=== PATIENT | female | born 1950 | race Caucasian/White ===

== ENCOUNTER → 2018-12-03 | Outpatient (CLI) | payer OTHER ==
[~2018-12-03] MED LIST: ACTIVE-Q200 MG PO; CALCIUM PO; LOSA25 PO; METO25ER PO; OMEGA 3 PO; RED YEAST RICE600 MG PO; UBIQUINOL PO; VIT D3 PO; XARELTO20 MG PO; [UNRECOGNIZED DRUG - OTHER] PO
[2018-12-05 15:06] LABS: HPV 16 Positive (Negative); HPV 18 Negative (Negative); HPV OTHER HR TYPES Negative (Negative)
== END | disposition home or self-care (01) ==
LOC: LAB SHORT 19:15 → LAB 19:15
PROVIDERS: Nurse Practitioner Women's Health
DX: Z12.4 Encounter for screening for malignant neoplasm of cervix (principal); Z91.89 Other specified personal risk factors, not elsewhere classified
CPT/HCPCS: 87624; 87625; G0123

== ENCOUNTER → 2019-01-08 | Outpatient (CLI) | payer OTHER | END | disposition home or self-care (01) | LOC: LAB SHORT 12:19 → PLD 12:19 | DX: N84.1 Polyp of cervix uteri (principal); N87.9 Dysplasia of cervix uteri, unspecified | CPT/HCPCS: 88305 ==

== ENCOUNTER → 2021-09-25 | Outpatient (CLI) | payer OTHER ==
[2021-09-25 09:58] LABS: BASOPHILS ABSOLUTE AUTO 0.04 K/mm3 (0.00-0.23); BASOPHILS PERCENT AUTO 1 % (0-2); EOSINOPHILS ABSOLUTE AUTO 0.09 K/mm3 (0.00-0.68); EOSINOPHILS PERCENT AUTO 1 % (0-6); Hematocrit 40.8 % (33.0-51.0); Hemoglobin 13.8 g/dL (11.5-16.0); IMMATURE GRAN ABSOLUTE AUTO 0.01 K/mm3 (0.00-0.10); IMMATURE GRAN PERCENT AUTO 0 % (0-1); LYMPHOCYTES ABSOLUTE AUTO 0.72 K/mm3 (0.84-5.20); LYMPHOCYTES PERCENT AUTO 12 % (21-46); MONOCYTES ABSOLUTE AUTO 0.47 K/mm3 (0.16-1.47); MONOCYTES PERCENT AUTO 8 % (4-13); Mean Corpuscular HGB 30.2 pg (26.0-34.0); Mean Corpuscular HGB Conc 33.8 g/dL (31.5-36.5); Mean Corpuscular Volume 89 fL (80-100); NEUTROPHILS ABSOLUTE AUTO 4.93 K/mm3 (1.96-9.15); NEUTROPHILS PERCENT AUTO 79 % (41-73); Platelet Count 180 K/mm3 (150-400); RDW Coefficient Variation 13.2 % (11.7-14.2); RDW Standard Deviation 43.3 fL (35.1-46.3); Red Blood Cell Count 4.57 M/mm3 (3.80-5.20); White Blood Cell Count 6.26 K/mm3 (4.00-11.30)
[2021-09-25 10:16] LABS: Alanine Aminotransfer (ALT/SGP 26 U/L (12-78); Albumin, Blood 3.8 g/dL (3.4-5.0); Albumin/Globulin Ratio 1.3 (0.8-1.8); Alk Phos 64 U/L (40-126); Anion Gap 6 mmol/L (6-16); Aspartate Aminotrans (AST/SGOT 18 U/L (12-37); Bilirubin, Total 0.7 mg/dL (0.1-1.0); Blood Urea Nitrogen 16 mg/dL (8-24); Bun/Creatinine Ratio 18.2 (12.0-20.0); CO2, Blood 27 mmol/L (21-32); Calcium, Blood 9.4 mg/dL (8.5-10.1); Chloride, Blood 105 mmol/L (98-108); Creatinine, Blood 0.88 mg/dL (0.40-1.00); Globulin, Blood 2.9 g/dL (2.2-4.0); Glomerular Filtration Rate >60 (60-); Glucose, Blood 101 mg/dL (70-99); Potassium, Blood 4.3 mmol/L (3.5-5.5); Sodium, Blood 138 mmol/L (136-145); Thyroid Stimulating Hormone 1.198 uIU/mL (0.360-4.800); Total Protein, Blood 6.7 g/dL (6.4-8.2)
== END | disposition home or self-care (01) ==
LOC: LAB SHORT 09:52 → LAB 09:52
PROVIDERS: Physician Assistant Medical
DX: I48.91 Unspecified atrial fibrillation (principal)
CPT/HCPCS: 80053; 83880; 84443; 85025

== ENCOUNTER 2021-10-21 23:32 | Emergency (ER) | payer OTHER ==
[~2021-10-21] VITALS: Ht 167.6 cm; Wt 90.7 kg
[~2021-10-21 23:32] MED LIST changes: +AFRIN15 M6; +IBUP800 PO; +ZYRTEC10 M2 PO
== END 2021-10-22 04:05 | disposition home or self-care (01) ==
LOC: ER 23:32
DX: G47.00 Insomnia, unspecified (principal); R00.0 Tachycardia, unspecified; I48.91 Unspecified atrial fibrillation; Z88.0 Allergy status to penicillin; Z91.040 Latex allergy status; Z79.899 Other long term (current) drug therapy
CPT/HCPCS: 93005; 93010; 99283-25

== ENCOUNTER 2021-10-31 01:30 | Emergency (ER) | payer OTHER ==
[~2021-10-31] VITALS: Ht 172.7 cm; Wt 79.4 kg
[2021-10-31] MEDS ORDERED: CELE100 PO (02:50)
[2021-10-31] MEDS ORDERED: FUROSEMIDE20 MG PO (02:50)
[2021-10-31 03:20] LABS: BASOPHILS ABSOLUTE AUTO 0.04 K/mm3 (0.00-0.23); BASOPHILS PERCENT AUTO 1 % (0-2); EOSINOPHILS PERCENT AUTO 2 % (0-6); Hematocrit 39.1 % (33.0-51.0); Hemoglobin 13.2 g/dL (11.5-16.0); IMMATURE GRAN ABSOLUTE AUTO 0.01 K/mm3 (0.00-0.10); IMMATURE GRAN PERCENT AUTO 0 % (0-1); LYMPHOCYTES ABSOLUTE AUTO 0.57 K/mm3 (0.84-5.20); LYMPHOCYTES PERCENT AUTO 14 % (21-46); MONOCYTES ABSOLUTE AUTO 0.57 K/mm3 (0.16-1.47); MONOCYTES PERCENT AUTO 14 % (4-13); Mean Corpuscular HGB 30.5 pg (26.0-34.0); Mean Corpuscular HGB Conc 33.8 g/dL (31.5-36.5); Mean Corpuscular Volume 90 fL (80-100); Mean Platelet Volume 11.9 fL (9.1-12.4); NEUTROPHILS ABSOLUTE AUTO 2.85 K/mm3 (1.96-9.15); NEUTROPHILS PERCENT AUTO 69 % (41-73); Platelet Count 184 K/mm3 (150-400); RDW Coefficient Variation 13.6 % (11.7-14.2); Red Blood Cell Count 4.33 M/mm3 (3.80-5.20); White Blood Cell Count 4.14 K/mm3 (4.00-11.30)
[2021-10-31 03:41] LABS: Alanine Aminotransfer (ALT/SGP 26 U/L (12-78); Albumin, Blood 3.5 g/dL (3.4-5.0); Albumin/Globulin Ratio 1.2 (0.8-1.8); Alk Phos 66 U/L (50-136); Anion Gap 6 mmol/L (6-16); Aspartate Aminotrans (AST/SGOT 15 U/L (12-37); Bilirubin, Total 0.8 mg/dL (0.1-1.0); Blood Urea Nitrogen 16 mg/dL (8-24); Bun/Creatinine Ratio 21.6 (12.0-20.0); CO2, Blood 27 mmol/L (21-32); Chloride, Blood 111 mmol/L (98-108); Creatinine, Blood 0.74 mg/dL (0.40-1.00); Globulin, Blood 2.8 g/dL (2.2-4.0); Glomerular Filtration Rate >60 (60-); Glucose, Blood 97 mg/dL (70-99); Magnesium, Blood 2.2 mg/dL (1.6-2.4); Potassium, Blood 3.8 mmol/L (3.5-5.5); Sodium, Blood 144 mmol/L (136-145); Total Protein, Blood 6.3 g/dL (6.4-8.2)
== END 2021-10-31 07:07 | disposition home or self-care (01) ==
LOC: ER 01:30
PROVIDERS: Student in an Organized Health Care Education/Training Program
DX: I48.91 Unspecified atrial fibrillation (principal); J30.2 Other seasonal allergic rhinitis; Z88.0 Allergy status to penicillin; Z91.040 Latex allergy status; Z79.899 Other long term (current) drug therapy
CPT/HCPCS: 71045; 80053; 83735; 83880; 84484; 85025; 93005; 93010; A9270

== ENCOUNTER 2021-11-01 17:37 | Emergency (ER) | payer OTHER ==
[~2021-11-01] VITALS: Ht 172.7 cm; Wt 83.9 kg
[~2021-11-01 17:37] MED LIST changes: +CELE100 PO; +FUROSEMIDE20 MG PO
[2021-11-02] MEDS ORDERED: LOSARTAN POTASS25 M2 PO (08:37)
[2021-11-02] MEDS ORDERED: CELE200 PO (10:21)
[2021-11-02] MEDS ORDERED: LASIX20 M2 PO (10:21)
[2021-11-02] MEDS ORDERED: METO100ER PO (10:21)
[2021-11-02] MEDS ORDERED: HYDCHL25 PO (10:21)
== END 2021-11-01 18:36 | disposition home or self-care (01) ==
LOC: ER 17:37
DX: M53.3 Sacrococcygeal disorders, not elsewhere classified (principal); M54.30 Sciatica, unspecified side; I48.91 Unspecified atrial fibrillation; Z79.899 Other long term (current) drug therapy; Z88.0 Allergy status to penicillin; J30.2 Other seasonal allergic rhinitis; Z91.040 Latex allergy status
CPT/HCPCS: J1885

== ENCOUNTER 2021-11-02 00:18 | Emergency (ER) | payer OTHER ==
[~2021-11-02] VITALS: Ht 172.7 cm; Wt 90.7 kg
[2021-11-02] MEDS ORDERED: LOSARTAN POTASS25 M2 PO (08:37)
[2021-11-02] MEDS ORDERED: LASIX20 M2 PO (10:21)
[2021-11-02] MEDS ORDERED: METO100ER PO (10:21)
[2021-11-02] MEDS ORDERED: HYDCHL25 PO (10:21)
[2021-11-02] MEDS ORDERED: CELE200 PO (10:21)
== END 2021-11-02 01:00 | disposition home or self-care (01) ==
LOC: ER 00:18
DX: R04.0 Epistaxis (principal); M54.50 Low back pain, unspecified; R53.1 Weakness; J30.2 Other seasonal allergic rhinitis; I48.91 Unspecified atrial fibrillation; Z79.899 Other long term (current) drug therapy; Z88.0 Allergy status to penicillin; Z91.040 Latex allergy status
CPT/HCPCS: 99282

== ENCOUNTER 2021-11-02 08:13 | Emergency (ER) | payer OTHER ==
[~2021-11-02] VITALS: Ht 172.7 cm; Wt 86.2 kg
[2021-11-02] MEDS ORDERED: LOSARTAN POTASS25 M2 PO (08:37)
[2021-11-02 08:52] LABS: BASOPHILS ABSOLUTE AUTO 0.05 K/mm3 (0.00-0.23); BASOPHILS PERCENT AUTO 1 % (0-2); EOSINOPHILS ABSOLUTE AUTO 0.04 K/mm3 (0.00-0.68); EOSINOPHILS PERCENT AUTO 1 % (0-6); Hemoglobin 12.4 g/dL (11.5-16.0); IMMATURE GRAN ABSOLUTE AUTO 0.02 K/mm3 (0.00-0.10); IMMATURE GRAN PERCENT AUTO 0 % (0-1); LYMPHOCYTES ABSOLUTE AUTO 0.52 K/mm3 (0.84-5.20); LYMPHOCYTES PERCENT AUTO 7 % (21-46); MONOCYTES ABSOLUTE AUTO 0.81 K/mm3 (0.16-1.47); MONOCYTES PERCENT AUTO 10 % (4-13); Mean Corpuscular HGB Conc 32.6 g/dL (31.5-36.5); Mean Corpuscular Volume 92 fL (80-100); Mean Platelet Volume 12.1 fL (9.1-12.4); NEUTROPHILS ABSOLUTE AUTO 6.35 K/mm3 (1.96-9.15); NEUTROPHILS PERCENT AUTO 82 % (41-73); Platelet Count 183 K/mm3 (150-400); RDW Coefficient Variation 13.6 % (11.7-14.2); RDW Standard Deviation 45.5 fL (35.1-46.3); Red Blood Cell Count 4.14 M/mm3 (3.80-5.20); White Blood Cell Count 7.79 K/mm3 (4.00-11.30)
[2021-11-02 09:11] LABS: Albumin, Blood 3.2 g/dL (3.4-5.0); Bilirubin, Total 0.6 mg/dL (0.1-1.0); Bun/Creatinine Ratio 18.5 (12.0-20.0); Calcium, Blood 8.6 mg/dL (8.5-10.1); Creatinine, Blood 0.76 mg/dL (0.40-1.00); Globulin, Blood 3.1 g/dL (2.2-4.0); Total Protein, Blood 6.3 g/dL (6.4-8.2)
[2021-11-02] MEDS ORDERED: CELE200 PO (10:21)
[2021-11-02] MEDS ORDERED: HYDCHL25 PO (10:21)
[2021-11-02] MEDS ORDERED: LASIX20 M2 PO (10:21)
[2021-11-02] MEDS ORDERED: METO100ER PO (10:21)
[2021-11-06] MEDS ORDERED: CLIN300 PO (02:12)
[2021-11-06] MEDS ORDERED: FURO40 PO (02:12)
== END 2021-11-02 12:35 | disposition home or self-care (01) ==
LOC: ER 08:13
PROVIDERS: Student in an Organized Health Care Education/Training Program
DX: I48.91 Unspecified atrial fibrillation (principal); M53.3 Sacrococcygeal disorders, not elsewhere classified; Z88.0 Allergy status to penicillin; Z91.040 Latex allergy status; Z91.048 Other nonmedicinal substance allergy status; Z79.899 Other long term (current) drug therapy; Z76.0 Encounter for issue of repeat prescription
CPT/HCPCS: 36415; 71045; 80053; 84484; 85025; 93005; 93010; 96374; 96375; 96376; 99283-25; 99285-25; A9270; J1885

== ENCOUNTER 2021-11-04 01:57 | Emergency (ER) | payer OTHER ==
[~2021-11-04] VITALS: Ht 172.7 cm; Wt 85.7 kg
[~2021-11-04 01:57] MED LIST changes: +CELE200 PO; +HYDCHL25 PO; +LASIX20 M2 PO; +LOSARTAN POTASS25 M2 PO; +METO100ER PO
[2021-11-04] MEDS ORDERED: Macrobid 100 M100 MG PO (15:18)
== END 2021-11-04 04:53 | disposition home or self-care (01) ==
LOC: ER 01:57
DX: M53.3 Sacrococcygeal disorders, not elsewhere classified (principal); I48.91 Unspecified atrial fibrillation; J30.2 Other seasonal allergic rhinitis; Z79.899 Other long term (current) drug therapy; Z88.0 Allergy status to penicillin; Z91.040 Latex allergy status
CPT/HCPCS: 72220; A9270

== ENCOUNTER 2021-11-07 00:15 | Emergency (ER) | payer OTHER ==
[~2021-11-07] VITALS: Ht 172.7 cm; Wt 99.8 kg
[~2021-11-07 00:15] MED LIST changes: +CLIN300 PO; +FURO40 PO; +Macrobid 100 M100 MG PO
[2021-11-07] MEDS ORDERED: CLIN150 PO (00:30)
[2021-11-07] MEDS ORDERED: FUROSEMIDE40 MG PO (00:31)
[2021-11-07] MEDS ORDERED: Nitrofurantoin100 M1 PO (00:31)
== END 2021-11-07 02:25 | disposition home or self-care (01) ==
LOC: ER 00:15
DX: I48.91 Unspecified atrial fibrillation (principal); U07.1 COVID-19; L03.312 Cellulitis of back [any part except buttock and flank]; Z88.0 Allergy status to penicillin; Z91.040 Latex allergy status; Z79.899 Other long term (current) drug therapy
CPT/HCPCS: 93005; 93010; 99283-25

== ENCOUNTER 2021-11-09 01:07 | Emergency (ER) | payer OTHER ==
[~2021-11-09] VITALS: Ht 172.7 cm; Wt 86.2 kg
[~2021-11-09 01:07] MED LIST changes: +CLIN150 PO; +FUROSEMIDE40 MG PO; +Nitrofurantoin100 M1 PO
[2021-11-09] MEDS ORDERED: BENZ100A PO (01:19)
[2021-11-10] MEDS ORDERED: BENZ100A PO (12:21)
== END 2021-11-09 01:49 | disposition home or self-care (01) ==
LOC: ER 01:07
DX: U07.1 COVID-19 (principal); I48.91 Unspecified atrial fibrillation; Z91.040 Latex allergy status; J30.2 Other seasonal allergic rhinitis; Z79.899 Other long term (current) drug therapy; Z88.0 Allergy status to penicillin
CPT/HCPCS: 99283

== ENCOUNTER 2021-11-10 10:31 | Emergency (ER) | payer OTHER ==
[~2021-11-10] VITALS: Ht 172.7 cm; Wt 74.8 kg
[~2021-11-10 10:31] MED LIST changes: +BENZ100A PO
[2021-11-10] MEDS ORDERED: BENZ100A PO (12:21)
== END 2021-11-10 12:40 | disposition home or self-care (01) ==
LOC: ER 10:31
DX: U07.1 COVID-19 (principal); Z88.0 Allergy status to penicillin; Z91.040 Latex allergy status; Z79.899 Other long term (current) drug therapy
CPT/HCPCS: 36415; A9270

== ENCOUNTER 2021-11-12 12:36 | Emergency (ER) | payer OTHER ==
[~2021-11-12] VITALS: Ht 172.7 cm; Wt 90.7 kg
[2021-11-12] MEDS ORDERED: FUROSEMIDE20 MG PO (13:06)
[2021-11-12] MEDS ORDERED: XARELTO20 M1 PO (13:07)
[2021-11-12] MEDS ORDERED: HYDCHL25 PO (13:07)
== END 2021-11-12 14:45 | disposition home or self-care (01) ==
LOC: ER 12:36
DX: R00.2 Palpitations (principal); I48.91 Unspecified atrial fibrillation; Z95.0 Presence of cardiac pacemaker; Z88.0 Allergy status to penicillin; Z91.040 Latex allergy status; Z79.899 Other long term (current) drug therapy; Z86.16 Personal history of COVID-19; Z79.01 Long term (current) use of anticoagulants
CPT/HCPCS: 99284

== ENCOUNTER 2021-11-12 17:48 | Observation (INO) | payer OTHER ==
[~2021-11-12] VITALS: Ht 172.7 cm; Wt 77.1 kg
[~2021-11-12 17:48] MED LIST changes: +XARELTO20 M1 PO
[2021-11-12 20:21] LABS: BASOPHILS ABSOLUTE AUTO 0.04 K/mm3 (0.00-0.23); BASOPHILS PERCENT AUTO 1 % (0-2); EOSINOPHILS ABSOLUTE AUTO 0.11 K/mm3 (0.00-0.68); EOSINOPHILS PERCENT AUTO 1 % (0-6); IMMATURE GRAN ABSOLUTE AUTO 0.17 K/mm3 (0.00-0.10); IMMATURE GRAN PERCENT AUTO 2 % (0-1); LYMPHOCYTES ABSOLUTE AUTO 0.91 K/mm3 (0.84-5.20); LYMPHOCYTES PERCENT AUTO 11 % (21-46); MONOCYTES ABSOLUTE AUTO 0.69 K/mm3 (0.16-1.47); MONOCYTES PERCENT AUTO 8 % (4-13); Mean Corpuscular HGB 29.7 pg (26.0-34.0); Mean Corpuscular HGB Conc 32.5 g/dL (31.5-36.5); Mean Corpuscular Volume 92 fL (80-100); Mean Platelet Volume 10.6 fL (9.1-12.4); NEUTROPHILS ABSOLUTE AUTO 6.38 K/mm3 (1.96-9.15); NEUTROPHILS PERCENT AUTO 77 % (41-73); Platelet Count 309 K/mm3 (150-400); RDW Coefficient Variation 13.7 % (11.7-14.2); RDW Standard Deviation 46.5 fL (35.1-46.3); Red Blood Cell Count 4.37 M/mm3 (3.80-5.20)
[2021-11-12 20:51] LABS: Source, Urine Voided
[2021-11-12 20:55] LABS: Blood, Urine 4+ (Neg); Glucose Qualitative, Urine Neg (Neg); Ketones, Urine 1+ (Neg); Leukocyte Esterase, Urine 2+ (Neg); Nitrite, Urine Neg (Neg); Protein, Urine 2+ (Neg); Specific Gravity, Urine 1.015 (1.003-1.022); Urobilinogen, Urine 2+ (Normal)
[2021-11-12 21:01] LABS: Ethanol (Alcohol), Blood, Med <3 mg/dL; Salicylate <1.7 mg/dL (2.8-20.0); Thyroxine (T4) 7.3 ug/dL (4.8-13.9)
[2021-11-12 21:02] LABS: Alanine Aminotransfer (ALT/SGP 37 U/L (12-78); Albumin, Blood 2.9 g/dL (3.4-5.0); Albumin/Globulin Ratio 0.8 (0.8-1.8); Alk Phos 70 U/L (50-136); Anion Gap 6 mmol/L (6-16); Aspartate Aminotrans (AST/SGOT 38 U/L (12-37); Bilirubin, Total 0.4 mg/dL (0.1-1.0); Blood Urea Nitrogen 13 mg/dL (8-24); Bun/Creatinine Ratio 14.2 (12.0-20.0); CO2, Blood 26 mmol/L (21-32); Calcium, Blood 8.8 mg/dL (8.5-10.1); Chloride, Blood 109 mmol/L (98-108); Creatinine, Blood 0.91 mg/dL (0.40-1.00); Globulin, Blood 3.8 g/dL (2.2-4.0); Glomerular Filtration Rate 68 (60-); Glucose, Blood 118 mg/dL (70-99); Potassium, Blood 4.4 mmol/L (3.5-5.5); Sodium, Blood 141 mmol/L (136-145); Total Protein, Blood 6.7 g/dL (6.4-8.2)
[2021-11-12 21:03] LABS: Appearance, Urine Hazy (Clear); Bilirubin, Urine 1+ (Neg); Color, Urine Yellow (P-Yellow)
[2021-11-12 21:03] LABS: Acetaminophen, Random <2.0 ug/mL (10.0-30.0)
[2021-11-12 21:04] LABS: Granular Casts 0-2 /lpf (0); Mucus Mod (0-Heavy)
[2021-11-12 21:05] LABS: Bacteria Mod /hpf; Squamous Epithelial Cells Mod /hpf (Few)
[2021-11-12 21:09] LABS: U Amphetamine Screen Not Detected; U Barbituate Screen Not Detected; U Benzodiazapine Screen DETECTED; U Buprenorphine Screen Not Detected; U Cannabinoids Screen Not Detected; U Cocaine Screen Not Detected; U Methadone Screen Not Detected; U Methamphetamine Screen Not Detected; U Opiates Screen Not Detected; U Oxycodone Screen Not Detected; U Phencyclidine Screen Not Detected; U Propoxyphene Screen Not Detected
[2021-11-12 22:39] LABS: Influenza A, PCR NEGATIVE (NEGATIVE); Influenza B, PCR NEGATIVE (NEGATIVE); Resp Syncytial Virus, PCR NEGATIVE (NEGATIVE)
[2021-11-12 22:45] LABS: SARS-Cov-2 (COVID-19) PCR, MMC POSITIVE (NEGATIVE)
== END 2021-11-17 12:55 | disposition home or self-care (01) ==
LOC: ER 17:48 → EOR 17:49
PROVIDERS: ADMIT Emergency Medicine
DX: F23 Brief psychotic disorder (principal); U07.1 COVID-19; Z88.0 Allergy status to penicillin; Z91.040 Latex allergy status; Z79.01 Long term (current) use of anticoagulants; I48.91 Unspecified atrial fibrillation; E66.9 Obesity, unspecified; Z68.25 Body mass index [BMI] 25.0-25.9, adult
CPT/HCPCS: 0241U; 36415; 80053; 81001; 81025; 84436; 84443; 85025; 86592; 87077; 87086; 87147; 87186; 93005; 93010; 96372; 99285-25; A9270; G0378; G0480; Q3014

== ENCOUNTER 2021-11-18 14:34 | Emergency (ER) | payer OTHER ==
[~2021-11-18] VITALS: Ht 172.7 cm; Wt 65.8 kg
== END 2021-11-18 16:15 | disposition home or self-care (01) ==
LOC: ER 14:34
DX: M25.552 Pain in left hip (principal); W07.XXXA Fall from chair, initial encounter; Z88.0 Allergy status to penicillin; Z91.040 Latex allergy status; Z79.899 Other long term (current) drug therapy
CPT/HCPCS: 73502

== ENCOUNTER 2021-11-19 01:16 | Emergency (ER) | payer OTHER ==
[~2021-11-19] VITALS: Ht 170.2 cm; Wt 90.7 kg
== END 2021-11-19 07:43 | disposition home or self-care (01) ==
LOC: ER 01:16
DX: R05.9 Cough, unspecified (principal); Z86.16 Personal history of COVID-19; Z91.040 Latex allergy status; Z88.0 Allergy status to penicillin
CPT/HCPCS: 71046; 99283-25

== ENCOUNTER 2021-11-20 18:23 | Emergency (ER) | payer OTHER ==
[~2021-11-20] VITALS: Ht 172.7 cm; Wt 74.8 kg
== END 2021-11-20 23:29 | disposition home or self-care (01) ==
LOC: ER 18:23
DX: R09.89 Other specified symptoms and signs involving the circulatory and respiratory systems (principal); R11.10 Vomiting, unspecified; Z88.0 Allergy status to penicillin; Z91.040 Latex allergy status; Z79.899 Other long term (current) drug therapy
CPT/HCPCS: 99283

== ENCOUNTER 2021-11-23 23:55 | Emergency (ER) | payer OTHER ==
[~2021-11-23] VITALS: Ht 172.7 cm; Wt 77.1 kg
[2021-11-24] MEDS ORDERED: ONDA4ODT MM (06:55)
[2021-11-25] MEDS ORDERED: ONDA4ODT MM (15:29)
== END 2021-11-24 07:06 | disposition home or self-care (01) ==
LOC: ER 23:55
DX: R11.2 Nausea with vomiting, unspecified (principal); Z88.0 Allergy status to penicillin; Z91.040 Latex allergy status; Z79.899 Other long term (current) drug therapy
CPT/HCPCS: A9270

== ENCOUNTER 2021-11-26 02:54 | Emergency (ER) | payer OTHER ==
[~2021-11-26] VITALS: Ht 175.3 cm; Wt 81.7 kg
[~2021-11-26 02:54] MED LIST changes: +ONDA4ODT MM
[2021-11-26 03:52] LABS: BASOPHILS PERCENT AUTO 2 % (0-2); EOSINOPHILS ABSOLUTE AUTO 0.19 K/mm3 (0.00-0.68); EOSINOPHILS PERCENT AUTO 4 % (0-6); Hematocrit 42.9 % (33.0-51.0); Hemoglobin 12.7 g/dL (11.5-16.0); IMMATURE GRAN ABSOLUTE AUTO 0.04 K/mm3 (0.00-0.10); IMMATURE GRAN PERCENT AUTO 1 % (0-1); LYMPHOCYTES ABSOLUTE AUTO 1.23 K/mm3 (0.84-5.20); LYMPHOCYTES PERCENT AUTO 23 % (21-46); MONOCYTES ABSOLUTE AUTO 0.55 K/mm3 (0.16-1.47); MONOCYTES PERCENT AUTO 10 % (4-13); Mean Corpuscular HGB Conc 29.6 g/dL (31.5-36.5); Mean Platelet Volume 11.1 fL (9.1-12.4); NEUTROPHILS ABSOLUTE AUTO 3.28 K/mm3 (1.96-9.15); NEUTROPHILS PERCENT AUTO 61 % (41-73); Platelet Count 205 K/mm3 (150-400); RDW Coefficient Variation 14.6 % (11.7-14.2); RDW Standard Deviation 54.6 fL (35.1-46.3); Red Blood Cell Count 4.24 M/mm3 (3.80-5.20); White Blood Cell Count 5.39 K/mm3 (4.00-11.30)
[2021-11-26 03:54] LABS: Mean Corpuscular Volume 101 fL (80-100)
[2021-11-26 04:15] LABS: Albumin, Blood 3.1 g/dL (3.4-5.0); Albumin/Globulin Ratio 0.9 (0.8-1.8); Bilirubin, Total 0.5 mg/dL (0.1-1.0); Bun/Creatinine Ratio 20.2 (12.0-20.0); Calcium, Blood 9.1 mg/dL (8.5-10.1); Creatinine, Blood 1.04 mg/dL (0.40-1.00); Globulin, Blood 3.4 g/dL (2.2-4.0); Potassium, Blood 4.4 mmol/L (3.5-5.5); Total Protein, Blood 6.5 g/dL (6.4-8.2)
== END 2021-11-26 05:08 | disposition home or self-care (01) ==
LOC: ER 02:54
PROVIDERS: Emergency Medicine
DX: I48.91 Unspecified atrial fibrillation (principal); Z79.899 Other long term (current) drug therapy; Z88.0 Allergy status to penicillin; Z91.040 Latex allergy status
CPT/HCPCS: 36415; 71045; 80053; 84484; 85025; 93005; 93010; A9270

== ENCOUNTER 2021-11-26 08:12 | Emergency (ER) | payer OTHER ==
[~2021-11-26] VITALS: Ht 177.8 cm; Wt 124.7 kg
== END 2021-11-26 12:18 | disposition home or self-care (01) ==
LOC: ER 08:12
DX: F41.9 Anxiety disorder, unspecified (principal); I48.91 Unspecified atrial fibrillation; Z79.899 Other long term (current) drug therapy; Z88.0 Allergy status to penicillin; Z91.040 Latex allergy status
CPT/HCPCS: 99283

== ENCOUNTER 2021-12-03 15:33 | Emergency (ER) | payer OTHER ==
[~2021-12-03] VITALS: Ht 175.3 cm; Wt 77.1 kg
[~2021-12-03 15:33] MED LIST changes: +Monodox100 MG PO; +SEROQUEL50 MG PO
== END 2021-12-03 20:00 | disposition left against medical advice (07) ==
LOC: ER 15:33
DX: R53.1 Weakness (principal); Z53.21 Procedure and treatment not carried out due to patient leaving prior to being seen by health care provider; Z79.899 Other long term (current) drug therapy
CPT/HCPCS: 99281

== ENCOUNTER 2021-12-22 03:53 | Emergency (ER) | payer OTHER ==
[~2021-12-22] VITALS: Ht 172.7 cm; Wt 80.7 kg
[2021-12-22] MEDS ORDERED: METO100ER (04:31)
== END 2021-12-22 05:05 | disposition home or self-care (01) ==
LOC: ER 03:53
DX: S31.000A Unspecified open wound of lower back and pelvis without penetration into retroperitoneum, initial encounter (principal); Z88.0 Allergy status to penicillin; Z91.040 Latex allergy status; Z79.899 Other long term (current) drug therapy; X58.XXXA Exposure to other specified factors, initial encounter
CPT/HCPCS: 99282

== ENCOUNTER 2021-12-28 21:22 | Emergency (ER) | payer OTHER ==
[~2021-12-28] VITALS: Ht 170.2 cm; Wt 81.7 kg
[~2021-12-28 21:22] MED LIST changes: +METO100ER
[2021-12-28 21:42] LABS: BASOPHILS ABSOLUTE AUTO 0.06 K/mm3 (0.00-0.23); BASOPHILS PERCENT AUTO 1 % (0-2); EOSINOPHILS ABSOLUTE AUTO 0.29 K/mm3 (0.00-0.68); EOSINOPHILS PERCENT AUTO 5 % (0-6); Hematocrit 36.1 % (33.0-51.0); Hemoglobin 12.1 g/dL (11.5-16.0); IMMATURE GRAN ABSOLUTE AUTO 0.07 K/mm3 (0.00-0.10); IMMATURE GRAN PERCENT AUTO 1 % (0-1); LYMPHOCYTES ABSOLUTE AUTO 1.64 K/mm3 (0.84-5.20); LYMPHOCYTES PERCENT AUTO 27 % (21-46); MONOCYTES ABSOLUTE AUTO 0.53 K/mm3 (0.16-1.47); MONOCYTES PERCENT AUTO 9 % (4-13); Mean Corpuscular HGB 30.3 pg (26.0-34.0); Mean Corpuscular HGB Conc 33.5 g/dL (31.5-36.5); Mean Corpuscular Volume 90 fL (80-100); Mean Platelet Volume 10.9 fL (9.1-12.4); NEUTROPHILS ABSOLUTE AUTO 3.59 K/mm3 (1.96-9.15); NEUTROPHILS PERCENT AUTO 58 % (41-73); Platelet Count 217 K/mm3 (150-400); RDW Coefficient Variation 13.2 % (11.7-14.2); RDW Standard Deviation 43.8 fL (35.1-46.3); White Blood Cell Count 6.18 K/mm3 (4.00-11.30)
[2021-12-28 22:01] LABS: Albumin, Blood 3.2 g/dL (3.4-5.0); Albumin/Globulin Ratio 1.1 (0.8-1.8); Bilirubin, Total 0.4 mg/dL (0.1-1.0); Bun/Creatinine Ratio 20.7 (12.0-20.0); Calcium, Blood 8.8 mg/dL (8.5-10.1); Creatinine, Blood 0.97 mg/dL (0.40-1.00); Potassium, Blood 3.9 mmol/L (3.5-5.5); Total Protein, Blood 6.2 g/dL (6.4-8.2)
[2021-12-28 22:02] LABS: International Normalized Ratio 0.95
[2021-12-29 00:26] LABS: Influenza A, PCR NEGATIVE (NEGATIVE); Influenza B, PCR NEGATIVE (NEGATIVE); Resp Syncytial Virus, PCR NEGATIVE (NEGATIVE); SARS-Cov-2 (COVID-19) PCR, MMC NEGATIVE (NEGATIVE)
== END 2021-12-29 00:07 | disposition short-term general hospital (02) ==
LOC: ER 21:22
PROVIDERS: Student in an Organized Health Care Education/Training Program
DX: S52.612B Displaced fracture of left ulna styloid process, initial encounter for open fracture type I or II (principal); S66.902A Unspecified injury of unspecified muscle, fascia and tendon at wrist and hand level, left hand, initial encounter; S64.02XA Injury of ulnar nerve at wrist and hand level of left arm, initial encounter; R40.2410 Glasgow coma scale score 13-15, unspecified time; I48.91 Unspecified atrial fibrillation; V49.9XXA Car occupant (driver) (passenger) injured in unspecified traffic accident, initial encounter; W54.0XXA Bitten by dog, initial encounter; Z88.0 Allergy status to penicillin; Z91.040 Latex allergy status; Z79.899 Other long term (current) drug therapy; Z20.822 Contact with and (suspected) exposure to COVID-19
CPT/HCPCS: 0241U; 70450; 71260; 72125; 73090; 73130; 74177; 80053; 83605; 83690; 85025; 85610; 90714; 93005; 93010; G0480; J1580; J3010; J3370; J7030; J7050; Q9967

== ENCOUNTER 2022-02-02 17:56 | Emergency (ER) | payer OTHER ==
[~2022-02-02] VITALS: Ht 172.7 cm; Wt 108.9 kg
[~2022-02-02 17:56] MED LIST changes: +Norco 5-325 Ta1 EACH PO
[2022-02-02 19:04] LABS: BASOPHILS ABSOLUTE AUTO 0.05 K/mm3 (0.00-0.23); BASOPHILS PERCENT AUTO 1 % (0-2); EOSINOPHILS ABSOLUTE AUTO 0.23 K/mm3 (0.00-0.68); EOSINOPHILS PERCENT AUTO 4 % (0-6); Hemoglobin 11.6 g/dL (11.5-16.0); IMMATURE GRAN ABSOLUTE AUTO 0.02 K/mm3 (0.00-0.10); IMMATURE GRAN PERCENT AUTO 0 % (0-1); LYMPHOCYTES ABSOLUTE AUTO 1.04 K/mm3 (0.84-5.20); LYMPHOCYTES PERCENT AUTO 17 % (21-46); MONOCYTES ABSOLUTE AUTO 0.52 K/mm3 (0.16-1.47); MONOCYTES PERCENT AUTO 9 % (4-13); Mean Corpuscular HGB 29.1 pg (26.0-34.0); Mean Corpuscular HGB Conc 32.2 g/dL (31.5-36.5); Mean Corpuscular Volume 90 fL (80-100); Mean Platelet Volume 11.1 fL (9.1-12.4); NEUTROPHILS ABSOLUTE AUTO 4.27 K/mm3 (1.96-9.15); NEUTROPHILS PERCENT AUTO 70 % (41-73); Platelet Count 195 K/mm3 (150-400); RDW Coefficient Variation 13.5 % (11.7-14.2); RDW Standard Deviation 44.3 fL (35.1-46.3); Red Blood Cell Count 3.99 M/mm3 (3.80-5.20); White Blood Cell Count 6.13 K/mm3 (4.00-11.30)
[2022-02-02 19:21] LABS: Albumin, Blood 3.6 g/dL (3.4-5.0); Albumin/Globulin Ratio 1.1 (0.8-1.8); Bilirubin, Total 0.5 mg/dL (0.1-1.0); Bun/Creatinine Ratio 22.1 (12.0-20.0); Calcium, Blood 9.1 mg/dL (8.5-10.1); Creatinine, Blood 0.73 mg/dL (0.40-1.00); Globulin, Blood 3.3 g/dL (2.2-4.0); Potassium, Blood 3.7 mmol/L (3.5-5.5); Total Protein, Blood 6.9 g/dL (6.4-8.2)
== END 2022-02-03 00:13 | disposition home or self-care (01) ==
LOC: ER 17:56
PROVIDERS: Student in an Organized Health Care Education/Training Program
DX: M54.9 Dorsalgia, unspecified (principal); M79.89 Other specified soft tissue disorders; I48.91 Unspecified atrial fibrillation; Z88.0 Allergy status to penicillin; Z91.040 Latex allergy status; Z79.899 Other long term (current) drug therapy
CPT/HCPCS: 36415; 73130; 80053; 83605; 85025; 99283-25; A9270; J1885

== ENCOUNTER 2022-02-04 23:09 | Emergency (ER) | payer OTHER ==
[~2022-02-04] VITALS: Ht 172.7 cm; Wt 104.3 kg
== END 2022-02-05 02:57 | disposition home or self-care (01) ==
LOC: ER 23:09
DX: M54.50 Low back pain, unspecified (principal); G89.29 Other chronic pain; Z48.00 Encounter for change or removal of nonsurgical wound dressing
CPT/HCPCS: 99283

== ENCOUNTER → 2022-02-06 | Outpatient (CLI) | payer OTHER ==
[~2022-02-06] MED LIST changes: +Cipro500 MG PO; +Seroquel Xr50 MG PO
== END | disposition home or self-care (01) ==
LOC: LAB SHORT 09:05 → LAB 09:05
DX: S61.552A Open bite of left wrist, initial encounter (principal)
CPT/HCPCS: 87070; 87075; 87077; 87205

== ENCOUNTER 2022-02-07 01:06 | Emergency (ER) | payer OTHER ==
[~2022-02-07] VITALS: Ht 167.6 cm; Wt 103.4 kg
[~2022-02-07 01:06] MED LIST changes: -Cipro500 MG PO; -Seroquel Xr50 MG PO
[2022-02-08] MEDS ORDERED: ONDA4ODT MM (09:45)
[2022-02-10] MEDS ORDERED: Cipro500 MG PO (00:07)
== END 2022-02-07 02:45 | disposition home or self-care (01) ==
LOC: ER 01:06
DX: M54.50 Low back pain, unspecified (principal); G89.29 Other chronic pain; R10.9 Unspecified abdominal pain; Z88.0 Allergy status to penicillin; Z91.040 Latex allergy status; Z87.81 Personal history of (healed) traumatic fracture
CPT/HCPCS: 96372; 99283-25; J1885

== ENCOUNTER 2022-02-08 08:57 | Emergency (ER) | payer OTHER ==
[~2022-02-08] VITALS: Ht 172.7 cm; Wt 104.3 kg
[2022-02-08] MEDS ORDERED: ONDA4ODT MM (09:45)
[2022-02-09] MEDS ORDERED: Seroquel Xr50 MG PO (11:45)
[2022-02-10] MEDS ORDERED: Cipro500 MG PO (00:07)
== END 2022-02-08 09:57 | disposition home or self-care (01) ==
LOC: ER 08:57
DX: U07.1 COVID-19 (principal); Z79.899 Other long term (current) drug therapy; Z88.0 Allergy status to penicillin; Z91.040 Latex allergy status
CPT/HCPCS: 99283

== ENCOUNTER 2022-02-08 15:17 | Emergency (ER) | payer OTHER ==
[~2022-02-08] VITALS: Ht 165.1 cm; Wt 113.4 kg
[2022-02-09] MEDS ORDERED: Seroquel Xr50 MG PO (11:45)
[2022-02-10] MEDS ORDERED: Cipro500 MG PO (00:07)
== END 2022-02-08 16:17 | disposition home or self-care (01) ==
LOC: ER 15:17
DX: U07.1 COVID-19 (principal); Z59.00 Homelessness unspecified; Z79.899 Other long term (current) drug therapy; Z88.0 Allergy status to penicillin; Z91.040 Latex allergy status
CPT/HCPCS: 99283

== ENCOUNTER 2022-02-08 23:57 | Emergency (ER) | payer OTHER ==
[~2022-02-08] VITALS: Ht 172.7 cm; Wt 104.3 kg
[2022-02-09] MEDS ORDERED: Seroquel Xr50 MG PO (11:45)
[2022-02-10] MEDS ORDERED: Cipro500 MG PO (00:07)
== END 2022-02-09 01:00 | disposition home or self-care (01) ==
LOC: ER 23:57
DX: U07.1 COVID-19 (principal); I48.91 Unspecified atrial fibrillation; Z79.899 Other long term (current) drug therapy; Z88.0 Allergy status to penicillin; Z91.040 Latex allergy status
CPT/HCPCS: 96372; 99282-25; A9270; J1885

== ENCOUNTER 2022-02-09 07:36 | Emergency (ER) | payer OTHER ==
[~2022-02-09] VITALS: Ht 172.7 cm; Wt 104.3 kg
[~2022-02-09 07:36] MED LIST changes: -Cipro500 MG PO; -Seroquel Xr50 MG PO
[2022-02-09] MEDS ORDERED: Seroquel Xr50 MG PO (11:45)
[2022-02-10] MEDS ORDERED: Cipro500 MG PO (00:07)
== END 2022-02-09 12:13 | disposition home or self-care (01) ==
LOC: ER 07:36
DX: R45.851 Suicidal ideations (principal); F39 Unspecified mood [affective] disorder; R60.0 Localized edema; Z79.899 Other long term (current) drug therapy; Z88.0 Allergy status to penicillin; Z91.040 Latex allergy status
CPT/HCPCS: 99283

== ENCOUNTER → 2022-02-09 | Outpatient (CLI) | payer OTHER ==
[~2022-02-09] MED LIST changes: +Cipro500 MG PO; +Seroquel Xr50 MG PO
[2022-02-09 17:37] LABS: BASOPHILS ABSOLUTE AUTO 0.03 K/mm3 (0.00-0.23); BASOPHILS PERCENT AUTO 1 % (0-2); EOSINOPHILS ABSOLUTE AUTO 0.08 K/mm3 (0.00-0.68); EOSINOPHILS PERCENT AUTO 2 % (0-6); Hematocrit 34.7 % (33.0-51.0); Hemoglobin 11.6 g/dL (11.5-16.0); IMMATURE GRAN ABSOLUTE AUTO 0.01 K/mm3 (0.00-0.10); IMMATURE GRAN PERCENT AUTO 0 % (0-1); LYMPHOCYTES PERCENT AUTO 17 % (21-46); MONOCYTES ABSOLUTE AUTO 0.48 K/mm3 (0.16-1.47); MONOCYTES PERCENT AUTO 12 % (4-13); Mean Corpuscular HGB 29.8 pg (26.0-34.0); Mean Corpuscular HGB Conc 33.4 g/dL (31.5-36.5); Mean Corpuscular Volume 89 fL (80-100); Mean Platelet Volume 10.8 fL (9.1-12.4); NEUTROPHILS ABSOLUTE AUTO 2.88 K/mm3 (1.96-9.15); NEUTROPHILS PERCENT AUTO 69 % (41-73); Platelet Count 179 K/mm3 (150-400); RDW Coefficient Variation 14.1 % (11.7-14.2); RDW Standard Deviation 45.7 fL (35.1-46.3); Red Blood Cell Count 3.89 M/mm3 (3.80-5.20); White Blood Cell Count 4.18 K/mm3 (4.00-11.30)
[2022-02-09 17:46] LABS: Albumin, Blood 3.4 g/dL (3.4-5.0); Bilirubin, Total 0.6 mg/dL (0.1-1.0); Bun/Creatinine Ratio 12.4 (12.0-20.0); Calcium, Blood 8.8 mg/dL (8.5-10.1); Creatinine, Blood 0.97 mg/dL (0.40-1.00); Globulin, Blood 3.3 g/dL (2.2-4.0); Potassium, Blood 3.8 mmol/L (3.5-5.5); Total Protein, Blood 6.7 g/dL (6.4-8.2)
== END | disposition home or self-care (01) ==
LOC: LAB SHORT 17:30 → LAB 17:30
PROVIDERS: Physician Assistant
DX: R60.9 Edema, unspecified (principal)
CPT/HCPCS: 80053; 83880; 85025

== ENCOUNTER 2022-02-10 08:17 | Emergency (ER) | payer OTHER | END 2022-02-10 10:29 | disposition home or self-care (01) | LOC: ER 08:17 | DX: N39.0 Urinary tract infection, site not specified (principal); Z88.0 Allergy status to penicillin; Z91.040 Latex allergy status; Z79.899 Other long term (current) drug therapy ==

== ENCOUNTER 2022-02-11 06:37 | Emergency (ER) | payer OTHER ==
[~2022-02-11] VITALS: Ht 170.2 cm; Wt 102.1 kg
[~2022-02-11 06:37] MED LIST changes: +Cipro500 MG PO; +Seroquel Xr50 MG PO
== END 2022-02-11 07:25 | disposition home or self-care (01) ==
LOC: ER 06:37
DX: Z48.00 Encounter for change or removal of nonsurgical wound dressing (principal)
CPT/HCPCS: A9270

== ENCOUNTER 2022-02-11 19:16 | Emergency (ER) | payer OTHER | END 2022-02-11 19:46 | disposition home or self-care (01) | LOC: ER 19:16 | DX: U07.1 COVID-19 (principal); Z88.0 Allergy status to penicillin; Z91.040 Latex allergy status; Z79.899 Other long term (current) drug therapy ==

== ENCOUNTER 2022-02-13 03:31 | Emergency (ER) | payer OTHER | END 2022-02-13 04:27 | disposition home or self-care (01) | LOC: ER 03:31 | DX: U07.1 COVID-19 (principal); Z88.0 Allergy status to penicillin; Z91.040 Latex allergy status ==

== ENCOUNTER 2022-02-15 00:32 | Emergency (ER) | payer OTHER ==
[~2022-02-15] VITALS: Ht 167.6 cm; Wt 90.7 kg
== END 2022-02-15 08:49 | disposition home or self-care (01) ==
LOC: ER 00:32
DX: M54.9 Dorsalgia, unspecified (principal); G89.29 Other chronic pain; Z79.899 Other long term (current) drug therapy; Z88.0 Allergy status to penicillin; Z91.040 Latex allergy status
CPT/HCPCS: J0515; J1885

== ENCOUNTER 2022-02-16 10:08 | Emergency (ER) | payer OTHER ==
[~2022-02-16] VITALS: Ht 172.7 cm; Wt 104.3 kg
== END 2022-02-16 15:10 | disposition home or self-care (01) ==
LOC: ER 10:08
DX: S32.010A Wedge compression fracture of first lumbar vertebra, initial encounter for closed fracture (principal); X58.XXXA Exposure to other specified factors, initial encounter; Z88.0 Allergy status to penicillin; Z91.040 Latex allergy status; Z79.899 Other long term (current) drug therapy
CPT/HCPCS: 72131; J1885

== ENCOUNTER 2022-02-19 19:17 | Emergency (ER) | payer OTHER ==
[~2022-02-19] VITALS: Ht 172.7 cm; Wt 97.5 kg
== END 2022-02-20 00:24 | disposition home or self-care (01) ==
LOC: ER 19:17
DX: M54.50 Low back pain, unspecified (principal); Z88.0 Allergy status to penicillin; Z91.040 Latex allergy status; Z79.899 Other long term (current) drug therapy
CPT/HCPCS: 96372; 99283-25; J1885

== ENCOUNTER 2022-08-26 10:25 | Inpatient (IN) | payer OTHER ==
[~2022-08-26] VITALS: Ht 162.6 cm; Wt 83.6 kg
[~2022-08-26 10:25] MED LIST changes: -METO100ER
[2022-08-26 10:52] LABS: BASOPHILS ABSOLUTE AUTO 0.02 K/mm3 (0.00-0.23); BASOPHILS PERCENT AUTO 0 % (0-2); EOSINOPHILS PERCENT AUTO 0 % (0-6); Hematocrit 41.3 % (33.0-51.0); Hemoglobin 14.3 g/dL (11.5-16.0); IMMATURE GRAN ABSOLUTE AUTO 0.05 K/mm3 (0.00-0.10); IMMATURE GRAN PERCENT AUTO 1 % (0-1); LYMPHOCYTES ABSOLUTE AUTO 0.43 K/mm3 (0.84-5.20); LYMPHOCYTES PERCENT AUTO 4 % (21-46); MONOCYTES PERCENT AUTO 7 % (4-13); Mean Corpuscular HGB 30.2 pg (26.0-34.0); Mean Corpuscular HGB Conc 34.6 g/dL (31.5-36.5); Mean Corpuscular Volume 87 fL (80-100); Mean Platelet Volume 12.8 fL (9.1-12.4); NEUTROPHILS PERCENT AUTO 88 % (41-73); Platelet Count 141 K/mm3 (150-400); RDW Coefficient Variation 13.5 % (11.7-14.2); RDW Standard Deviation 42.9 fL (35.1-46.3); Red Blood Cell Count 4.74 M/mm3 (3.80-5.20)
[2022-08-26 11:20] LABS: Ethanol (Alcohol), Blood, Med <3 mg/dL
[2022-08-26 11:33] LABS: Alanine Aminotransfer (ALT/SGP 46 U/L (12-78); Albumin, Blood 3.4 g/dL (3.4-5.0); Alk Phos 68 U/L (50-136); Anion Gap 10 mmol/L (6-16); Aspartate Aminotrans (AST/SGOT 116 U/L (12-37); Bilirubin, Total 1.9 mg/dL (0.1-1.0); Blood Urea Nitrogen 56 mg/dL (8-24); Bun/Creatinine Ratio 13.9 (12.0-20.0); CO2, Blood 23 mmol/L (21-32); CPK Creatine Kinase 2960 U/L (26-193); Calcium, Blood 10.2 mg/dL (8.5-10.1); Chloride, Blood 111 mmol/L (98-108); Creatinine, Blood 4.02 mg/dL (0.40-1.00); Globulin, Blood 3.3 g/dL (2.2-4.0); Glomerular Filtration Rate 11 (60-); Glucose, Blood 106 mg/dL (70-99); Potassium, Blood 3.9 mmol/L (3.5-5.5); Sodium, Blood 144 mmol/L (136-145); Total Protein, Blood 6.7 g/dL (6.4-8.2)
[2022-08-26 11:57] LABS: Creatine Kinase MB 35.4 ng/mL (0.0-3.6); Creatine Kinase MB Index 1.2 (0.0-4.0)
[2022-08-26 12:01] LABS: Influenza A, PCR NEGATIVE (NEGATIVE); Influenza B, PCR NEGATIVE (NEGATIVE); Resp Syncytial Virus, PCR NEGATIVE (NEGATIVE); SARS-Cov-2 (COVID-19) PCR, MMC NEGATIVE (NEGATIVE)
[2022-08-26 12:56] LABS: Source, Urine Straight Cath
[2022-08-26 13:09] LABS: Appearance, Urine Turbid (Clear); Color, Urine Yellow (P-Yellow)
[2022-08-26 13:13] LABS: Blood, Urine 3+ (Neg); Glucose Qualitative, Urine Neg (Neg); Ketones, Urine 1+ (Neg); Leukocyte Esterase, Urine 1+ (Neg); Nitrite, Urine Pos (Neg); Protein, Urine 2+ (Neg); Urobilinogen, Urine 1+ (Normal)
[2022-08-26 13:14] LABS: Bilirubin, Urine 1+ (Neg)
[2022-08-26 13:26] LABS: Amorphous Light (0-Heavy); Bacteria Many /hpf; Mucus Light (0-Heavy); Squamous Epithelial Cells Few /hpf (Few)
[2022-08-26 13:34] LABS: U Amphetamine Screen Not Detected; U Barbituate Screen Not Detected; U Benzodiazapine Screen Not Detected; U Buprenorphine Screen Not Detected; U Cannabinoids Screen Not Detected; U Cocaine Screen Not Detected; U Methadone Screen Not Detected; U Methamphetamine Screen Not Detected; U Opiates Screen Not Detected; U Oxycodone Screen Not Detected; U Phencyclidine Screen Not Detected; U Propoxyphene Screen Not Detected
[2022-08-26 16:12] LABS: Anti-Xa UFH, PHA Monitoring <0.10 IU/mL; International Normalized Ratio 1.09; Prothrombin Time Results 11.4 Sec (9.7-11.5)
--- NOTE | 2022-08-26 18:17 | NUR ---
ADMIT NOTE AND SHIFT SUMMARY PT ARRIVED TO PCU FROM ED VIA ED STRETCHER AT APPROX 1500. PT WAS SLID BY 4 STAFF FROM ED STRETCHER TO PCU BED. PT A&OX1, NOT FOLLOWING COMMANDS. GRASPS AT THINGS IN AIR WITH ARMS/HANDS. RESTLESS, TREMORS, FREQUENT MOVEMENT IN ALL EXTREMITIES. SP02>90% ON NON REBREATHER. ONCE SETTLED IN ROOM, SWITCHED TO NC 5L. TELEMETRY SHOWS AFIB, HR 120'S. CARDIZEM INFUSING AT 15 PER EMAR. UPON ARRIVAL, POWER GLIDE INSERTED INTO ZORA. BLADDER SCAN D/T PT BEING RESTLESS, SHOWED >695. CALL PLACED TO MD MOREL. MD MOREL WITH ORDERS FOR STALLWORTH CATHETR. STALLWORTH CATHETER INSERTED, DRAINED 1200 MLS OF TEA, TURIB, SEDIMENT URINE. BED BATH GIVEN. HEPARIN STARTED INFUSING PER EMAR. FLUIDS STARTED INFUSING PER EMAR. PT RESTING IN ROOM, UNABLE TO GIVE HISTORY. CALL LIGHT INREACH.
[2022-08-27 04:27] LABS: BASOPHILS ABSOLUTE AUTO 0.02 K/mm3 (0.00-0.23); BASOPHILS PERCENT AUTO 0 % (0-2); EOSINOPHILS ABSOLUTE AUTO 0.11 K/mm3 (0.00-0.68); EOSINOPHILS PERCENT AUTO 2 % (0-6); Hematocrit 32.9 % (33.0-51.0); IMMATURE GRAN ABSOLUTE AUTO 0.01 K/mm3 (0.00-0.10); IMMATURE GRAN PERCENT AUTO 0 % (0-1); LYMPHOCYTES ABSOLUTE AUTO 0.49 K/mm3 (0.84-5.20); LYMPHOCYTES PERCENT AUTO 9 % (21-46); MONOCYTES ABSOLUTE AUTO 0.47 K/mm3 (0.16-1.47); MONOCYTES PERCENT AUTO 9 % (4-13); Mean Corpuscular HGB 30.2 pg (26.0-34.0); Mean Corpuscular HGB Conc 33.4 g/dL (31.5-36.5); Mean Corpuscular Volume 90 fL (80-100); NEUTROPHILS ABSOLUTE AUTO 4.39 K/mm3 (1.96-9.15); NEUTROPHILS PERCENT AUTO 80 % (41-73); Platelet Count 108 K/mm3 (150-400); RDW Coefficient Variation 13.7 % (11.7-14.2); RDW Standard Deviation 45.5 fL (35.1-46.3); Red Blood Cell Count 3.64 M/mm3 (3.80-5.20); White Blood Cell Count 5.49 K/mm3 (4.00-11.30)
[2022-08-27 04:56] LABS: Albumin, Blood 2.3 g/dL (3.4-5.0); Albumin/Globulin Ratio 0.8 (0.8-1.8); Bilirubin, Total 0.9 mg/dL (0.1-1.0); Bun/Creatinine Ratio 21.8 (12.0-20.0); Calcium, Blood 8.3 mg/dL (8.5-10.1); Creatinine, Blood 2.39 mg/dL (0.40-1.00); Potassium, Blood 3.4 mmol/L (3.5-5.5); Total Protein, Blood 5.3 g/dL (6.4-8.2)
--- NOTE | 2022-08-27 06:30 | NUR ---
SHIFT SUMMARY PATIENT IS ALERT AND ORIENTED TO SELF ONLY. PATIENT IS CONFUSED AND NOT ABLE TO TAKE DIRECTIONS. PATIENT REMAINS NPO AND ON BEDREST. MEDICATED PER EMAR FOR CIWA PATIENT WAS TREMULOUS AND STARTING TO PULL AT LINES. AFTER, PATIENT SLEPT ALL NIGHT ONLY RESPONDING TO PAINFUL STIMULUS. JULES VEST REMOVED. PATIENT'S BLOOD PRESSURE HYPOTENSIVE IN THE 90'S SYSTOLIC. CARDIZEM DRIP RUNNING AT 10, HEART CURRENTLY AFIB IN THE 90'S. LUNG SOUNDS DIMINISHED IN THE BASES. SPO2 >90% ON 3 LITERS O2 VIA NC. WILL CONTINUE TO MONITOR. CALL LIGHT WITHIN REACH.
--- NOTE | 2022-08-27 07:30 | NUR ---
Received report from Clau RN./ Patient is laying on her left side and is very tremulous. She is able to barely state her name and mostly non verbal. She is on 3L O2 and sats >90%. She is constantly figiting with her hands and unable to follow basic commands or is able to be redirected. She moves all extremities, but very very weak and almost no fine motor skills. She has 20ga to LAC and is infusing Heparin at 17 units/kg/hr, 20ga IV LW infvusing Cardizem at 10 mg/hr, and a 18ga PowerGlide in ZORA infusing NS 125 ml/hr. She has 16Fr Culver draining to gravity light colored urine. See JASVIR
--- NOTE | 2022-08-27 09:30 | NUR ---
Patient remains unchanged and very tremulous. Minimal responses and blurts out words. She continues to fidget with everything. Oral care done and am ADL's. She continues on NS at 125ml/hr and Cardizem has been increased to 14mg/hr, Heparin increased this am to 19 units/kg/hr and 1650 unit bolus. Culver remains patent with fidelia colred urine output.
--- NOTE | 2022-08-27 11:46 | NUR ---
Patient resting and awakens to verbal stimuli. She continues to follow minimal commands, barely opens eyes. She remains tremulous. Cardizem at 15mg/hr r/t HR a-fib 120-130's, and Heparin remains at 19 units/kg/hr per pharmacy. No gtt, neuro changes and O@ increased by RT to 4L O2 via NC that she constantly puls off and needs to be reapplied. Culver remains patent draining to gravity fidelia colored urine.
[2022-08-27 12:40] LABS: Magnesium, Blood 2.4 mg/dL (1.6-2.4); Phosphorus, Blood 2.8 mg/dL (2.5-4.9)
--- NOTE | 2022-08-27 13:30 | NUR ---
Patient still awake and playing with things in bed as well as messing with her nose and O2 falling off. She continues in A-Fib 90-115 and sats >90 as she was reduced to 3L O2 via NC. She has NS reduced to [address] Ocampo was here. She has cardizem at 15 mg/hr and Heparin at 19 units/kg/hr. 16Fr Culver draining to gravity fidelia colored urine. No significant changes since last assessment.
--- NOTE | 2022-08-27 15:30 | NUR ---
Echo has been done and no other changes with patient.
--- NOTE | 2022-08-27 17:03 | NUR ---
Patient has been leaning and tilting head to left side regardless of what position she is placed. Left facial droop more prominent now. Called Dr Nair and she has ordered follow up CT to see any changes from 08/26/22. Upper extremities slight left side deficit and LE no signs of strength deficits. Heparin placed on hold until CT read.
--- NOTE | 2022-08-27 20:01 | NUR ---
ASSUMED PT CARE FROM ORAL HERMAN ON . PT IS AWAKE, ORIENTED TO SELF ONLY. UNABLE TO MAKE NEEDS KNOWN, FOLLOWS DIRECTIONS WITH DIFFICULTY, BECOMING EASILY DISTRACTED. PT ABLE TO RESPOND TO DIRECT QUESTIONS WITH ONE OR TWO WORD RESPONSES. PT FIDGETITING WITH COVERS AND LINES. LINES PLACED OUT OF PT'S REACH FOR SAFETY. FLUIDS, HEPRIN GTT AND CARDIZEM GTT INFUSING ORDERED, SEE EMAR. RESPIRATIONS TACHYPNIC WHEN AWAKE BUT EVEN AND UNLABORED WHEN SLEEPING. O2 SATS AT 93% ON 3LPM. HR IN LOW 100'S IN A-FIB, DOES NOT COMPLAIN OF ANY CHEST PAIN. WILL CONTINUE TO MONITOR. CALL LIGHT IN REACH. BED ALARM ON FOR PT SAFETY.
[2022-08-28 01:57] LABS: Bun/Creatinine Ratio 25.2 (12.0-20.0); Calcium, Blood 8.7 mg/dL (8.5-10.1); Creatinine, Blood 1.39 mg/dL (0.40-1.00); Potassium, Blood 3.1 mmol/L (3.5-5.5)
[2022-08-28 02:03] LABS: BASOPHILS ABSOLUTE AUTO 0.02 K/mm3 (0.00-0.23); BASOPHILS PERCENT AUTO 1 % (0-2); EOSINOPHILS PERCENT AUTO 2 % (0-6); Hematocrit 32.4 % (33.0-51.0); IMMATURE GRAN ABSOLUTE AUTO 0.04 K/mm3 (0.00-0.10); IMMATURE GRAN PERCENT AUTO 1 % (0-1); LYMPHOCYTES ABSOLUTE AUTO 0.49 K/mm3 (0.84-5.20); LYMPHOCYTES PERCENT AUTO 11 % (21-46); MONOCYTES ABSOLUTE AUTO 0.39 K/mm3 (0.16-1.47); MONOCYTES PERCENT AUTO 9 % (4-13); Mean Corpuscular HGB 29.9 pg (26.0-34.0); Mean Corpuscular Volume 88 fL (80-100); Mean Platelet Volume 12.7 fL (9.1-12.4); NEUTROPHILS ABSOLUTE AUTO 3.27 K/mm3 (1.96-9.15); NEUTROPHILS PERCENT AUTO 76 % (41-73); Platelet Count 118 K/mm3 (150-400); RDW Coefficient Variation 13.5 % (11.7-14.2); RDW Standard Deviation 43.9 fL (35.1-46.3); Red Blood Cell Count 3.68 M/mm3 (3.80-5.20); White Blood Cell Count 4.31 K/mm3 (4.00-11.30)
--- NOTE | 2022-08-28 07:47 | NUR ---
Pt is very lethargic, does not open eyes spontaneously. Some mumbling but more responsive to tactile stimuli but not really responsive to directions, conversation, etc. PERRL. Possible left side droop of the mouth. Mouth is dry. Spontaneous movements of arms and legs, appears to be picking at things. Repositioned on her right side. Atrial fibrillation noted 90 bpm by playground monitor. Respirations are even, unlabored with clear lung sounds. On 3.5 l/min of oxygen delivery, spo2 90-91%. No peripheral edema noted. Skin is intact, but non blachable boggy redness noted on the lateral side of her left foot. Culver catheter is draining clear yellow urine.
[2022-08-28] MEDS ORDERED: BUSP5 PO (10:55)
--- NOTE | 2022-08-28 10:55 | NUR ---
Pt keeps eyes closed throughout oral care, bed bath, shampoo, linen change and repositioning. Occasional mumbling words, incoherent. Moving all extremities weakly. Picking at the air with both hands occasionally. Very rarely opening her eyes spontaneously when care is completed. Cardizem gtt decresed to 10mg/hour at this time as heart rate noted 87 bpm. Blood pressure 1124/82 (96), RR 21-25/min.
[2022-08-28 12:51] LABS: Albumin, Blood 2.6 g/dL (3.4-5.0); Anion Gap 5 mmol/L (6-16); Blood Urea Nitrogen 25 mg/dL (8-24); Bun/Creatinine Ratio 23.6 (12.0-20.0); CO2, Blood 25 mmol/L (21-32); Calcium, Blood 9.1 mg/dL (8.5-10.1); Chloride, Blood 117 mmol/L (98-108); Creatinine, Blood 1.06 mg/dL (0.40-1.00); Glomerular Filtration Rate 57 (60-); Glucose, Blood 105 mg/dL (70-99); Phosphorus, Blood 2.6 mg/dL (2.5-4.9); Potassium, Blood 3.1 mmol/L (3.5-5.5); Sodium, Blood 147 mmol/L (136-145)
--- NOTE | 2022-08-28 13:00 | NUR ---
Call to regarding most recent renal panel results. She will put in new orders
--- NOTE | 2022-08-28 13:59 | NUR ---
Pt more alert, attempting conversation. Oriented to person and place. Conversation is more understandable, improved from one hour ago. She is cooperating with oral care, and doing it herself with some assistance with the student nurse.
--- NOTE | 2022-08-28 14:35 | NUR ---
Repositioned to the right side. Weaned off of oxygen. spo2 90-93%.
--- NOTE | 2022-08-28 16:54 | NUR ---
pt altered review of labs and medication. updated nursing will reassess. pt was able to express some symptoms of headaches and denies frequnt falls or ringing in ears. complains of great fatigue. will follow up.
--- NOTE | 2022-08-28 17:42 | NUR ---
Drinking sips of ice water with supervision. Some lack of coordination and mild tremors of her hands. Otherwise no difficulty drinking noted.
--- NOTE | 2022-08-28 17:52 | NUR ---
CIWA score is 8. Tremors, confusion, and heart rate 112-125 bpm. Given 1 mg ativan IV at this time.
[2022-08-28 18:36] LABS: Bun/Creatinine Ratio 23.4 (12.0-20.0); Calcium, Blood 8.9 mg/dL (8.5-10.1); Creatinine, Blood 0.9 mg/dL (0.40-1.00); Potassium, Blood 3.5 mmol/L (3.5-5.5)
--- NOTE | 2022-08-28 18:39 | NUR ---
Pt is alert, oriented to person, and following some directions. She is mostly confused, picking at various objects, items on bedside table, her lines/cords/tubes, and does not appear to know what they are for. Also appears to be having hallucinations, picking at unseen objects in the air in front of her. Her speech is mumbled, hard to understand most of the time. She appears to be a little sleepy after administration of ativan 1 mg, and her tremors have decreased somewhat. Heart rate is 93, by bedside monitor.
[2022-08-29 04:27] LABS: Hematocrit 35.9 % (33.0-51.0); Hemoglobin 12.5 g/dL (11.5-16.0); Mean Platelet Volume 11.9 fL (9.1-12.4); Platelet Count 133 K/mm3 (150-400)
[2022-08-29 04:44] LABS: Albumin, Blood 2.6 g/dL (3.4-5.0); Anion Gap 5 mmol/L (6-16); Blood Urea Nitrogen 16 mg/dL (8-24); Bun/Creatinine Ratio 18.6 (12.0-20.0); CO2, Blood 25 mmol/L (21-32); Chloride, Blood 115 mmol/L (98-108); Creatinine, Blood 0.86 mg/dL (0.40-1.00); Glomerular Filtration Rate 73 (60-); Glucose, Blood 124 mg/dL (70-99); Magnesium, Blood 1.8 mg/dL (1.6-2.4); Potassium, Blood 3.1 mmol/L (3.5-5.5); Sodium, Blood 145 mmol/L (136-145)
--- NOTE | 2022-08-29 06:23 | NUR ---
PT CONFUSED, AOX1. FOLLOWS COMMANDS AND MOVES ALL EXTREMETIES. CIWA SCORES 6-12. AFIB ON DILTIAZEM GTT TO MAINTAIN HR <110. BP STABLE. REQUIRING 2L NC OVERNIGHT. STALLWORTH IN PLACE AND PATENT. HEPARIN GTT INFUSING.
--- NOTE | 2022-08-29 11:24 | NUR ---
Oral care complete, vital signs taken. Pt does not open her eyes. Cooperative with oral care. Winces occasionally with some care, but no vocalization. Repositioned to her left side. Vital signs are stable, bed alarm on for safety should she become more alert but still confused.
--- NOTE | 2022-08-29 14:01 | NUR ---
Starting to open eyes spontaneously, occasionally.
--- NOTE | 2022-08-29 19:30 | NUR ---
ASSESSMENT/ASSUMED CARE PT SLEEPING. OPENS EYES TO VERBAL STIMULI AND FOLLOWS INSTRUCTIONS. BACK TO SLEEP QUICKLY. PT ON 5 LITERS O2 VIA NC TO MOUTH DUE TO MOUTH BREATHING. LUNGS CLEAR BUT DECREASED. SPEECH SLOW AND MUMBLED, HEART RATE IRREGULAR. 80-100'S RATE. PT ON CADIZEM GTT AT 10 MG/HR FOR RATE CONTROL. PT ALSO RECEIVING HEPARIN AT 21 UNITS/KG/HR AND PPN AT 94 ML/HR. BT+ ABD SOFT AND NONTENDER. IV POWER GLIDE TO RIGHT UPPER ARM DRSG INTACT. SITE CLEAR. PIV X2 TO LEFT FOREARM BOTH SITES CLEAR WITH DRSG INTACT. STALLWORTH CATH PATENT DRAINING CLEAR YELLOW URINE. PT REPOSITIONED AND ORAL CARE DONE. BED ALARM ON.
--- NOTE | 2022-08-29 21:38 | NUR ---
SLEEP APNEA PT PLACED ON CPAP DUE TO SPO2 DROPPING DOWN TO MID 80'S WHILE SLEEPING WITH O2 IN MOUTH. SPO2 BACK UP QUICKLY. RT PLACED ON CPAP 5-20 WITH 4 LITER O2.
[2022-08-29 21:56] LABS: PCO2 Arterial 39.3 mmHg (35-45); PO2 Arterial 90.5 mmHg (80-100); pH Blood Arterial 7.46 (7.35-7.45)
[2022-08-30 05:33] LABS: BASOPHILS ABSOLUTE AUTO 0.02 K/mm3 (0.00-0.23); BASOPHILS PERCENT AUTO 0 % (0-2); EOSINOPHILS ABSOLUTE AUTO 0.24 K/mm3 (0.00-0.68); EOSINOPHILS PERCENT AUTO 4 % (0-6); Hematocrit 36.1 % (33.0-51.0); Hemoglobin 12.6 g/dL (11.5-16.0); IMMATURE GRAN ABSOLUTE AUTO 0.03 K/mm3 (0.00-0.10); IMMATURE GRAN PERCENT AUTO 1 % (0-1); LYMPHOCYTES ABSOLUTE AUTO 0.45 K/mm3 (0.84-5.20); LYMPHOCYTES PERCENT AUTO 8 % (21-46); MONOCYTES ABSOLUTE AUTO 0.45 K/mm3 (0.16-1.47); MONOCYTES PERCENT AUTO 8 % (4-13); Mean Corpuscular HGB 30.3 pg (26.0-34.0); Mean Corpuscular HGB Conc 34.9 g/dL (31.5-36.5); Mean Corpuscular Volume 87 fL (80-100); Mean Platelet Volume 12.1 fL (9.1-12.4); NEUTROPHILS ABSOLUTE AUTO 4.63 K/mm3 (1.96-9.15); NEUTROPHILS PERCENT AUTO 80 % (41-73); Platelet Count 143 K/mm3 (150-400); RDW Coefficient Variation 13.2 % (11.7-14.2); RDW Standard Deviation 41.3 fL (35.1-46.3); Red Blood Cell Count 4.16 M/mm3 (3.80-5.20); White Blood Cell Count 5.82 K/mm3 (4.00-11.30)
--- NOTE | 2022-08-30 05:54 | NUR ---
SHIFT SUMMARY PT RESTING QUIETLY WITH CPAP ON. OPENS EYES AND FOLLOWS SIMPLE INSTRUCTIONS, BUT BACK TO SLEEP QUICKLY. PLACED ON CPAP DURING THE NIGHT DUE TO SLEEP APNEA. VSS. TURNING Q2HR. BED ALARM ON. ORAL CARE Q4HRS. HEPARIN GTT, CARDIZEM GTT UNCHANGED. PT NPO, RECEIVING PPN. NO ACUTE CHANGE. REPORT TO ON COMING NURSE
[2022-08-30 06:04] LABS: Albumin, Blood 2.3 g/dL (3.4-5.0); Anion Gap 3 mmol/L (6-16); Blood Urea Nitrogen 19 mg/dL (8-24); Bun/Creatinine Ratio 23.5 (12.0-20.0); CO2, Blood 27 mmol/L (21-32); Calcium, Blood 8.9 mg/dL (8.5-10.1); Chloride, Blood 110 mmol/L (98-108); Creatinine, Blood 0.81 mg/dL (0.40-1.00); Glomerular Filtration Rate 78 (60-); Glucose, Blood 144 mg/dL (70-99); Magnesium, Blood 1.9 mg/dL (1.6-2.4); Phosphorus, Blood 3.4 mg/dL (2.5-4.9); Potassium, Blood 3.6 mmol/L (3.5-5.5); Sodium, Blood 140 mmol/L (136-145); Triglycerides 108 mg/dL (30-160)
--- NOTE | 2022-08-30 08:45 | NUR ---
AM ASSESSMENT; Pt appears to be sleeping with CPAP. Resp even and unlabored. Pt wakes to verbal stimulus. Follows directions and asks appropriate questions. Pt oriented to place, person, time and surroundings. LS diminished, HR irregular with tele showing afib. Cardizem gtt running at 10. heprin gtt and PPN also running per orders. Pt states that she is feeling hungry. Able to swallow water with spoon. Tolerted well. WIll notify physician of pt's improved mentation. Call light in reach. Bed alarm on.
[2022-08-30] MEDS ORDERED: CELE200 PO (12:44)
--- NOTE | 2022-08-30 16:36 | NUR ---
shift Summary: Pt resting comfortably in bed at this time. Pt has done well this shift. Was able to wake to verbal stimulus and stay awake this AM. Was able to work with PT/OT. Culver cath was discontinued this am. Pt has been oriented x4. Able to participate with care, eat a full diet and has not been confused. PPN and cardizem gtt were discontinued. VSS. HR has remained in a-fib and did increase to 150 with activity but came back down to 80's after resting. Started on PO metoprolol and rate has done well. Stable at this time. Report was given to VIRGIL Bland. Call light in reach.
[2022-08-31 04:25] LABS: Hemoglobin 12.5 g/dL (11.5-16.0); Mean Platelet Volume 11.1 fL (9.1-12.4); Platelet Count 168 K/mm3 (150-400)
--- NOTE | 2022-08-31 05:52 | NUR ---
SHIFT SUMMARY PATIENT ALERT AND ORIENTED X4. ANSWERED ALL ORIENTATION QUESTIONS APPROPRIATELY. MEDICATED PER EMAR FOR BACK PAIN. VITAL SIGNS STABLE. LUNG SOUNDS DIMINISHED IN THE BASES, SPO2 95% ON 2 LITERS O2 VIA NC, PATIENT DESATS WHEN THE OXYGEN FALLS OUT OF HER NOSE. PATIENT AFIB IN THE 80'S-90'S ON TELE. NO ACUTE ISSUES NOTED OVERNIGHT. WILL CONTINUE TO MONITOR. CALL LIGHT WITHIN REACH.
[2022-08-31 12:12] LABS: Potassium, Blood 3.9 mmol/L (3.5-5.5)
--- NOTE | 2022-08-31 15:42 | NUR ---
REPORT CALLED TO MEDICAL FLOOR RN. PT REMAINS A/O X3. HEPARIN INFUSING ON TRANSFER TO MEDICAL FLOOR.
--- NOTE | 2022-08-31 18:21 | NUR ---
pT TRANSFERRED FROM PCU AROUND 1430. ARRIVED BY WHEELCHAIR. AXO 3, CAN BE IMPULSIVE. PT UP TO BEDSIDE COMMODE. REGULAR DIET. NO NOTED WITHDRAWAL SYMPTOMS. TELE 110 HR, PT ASYMPTOMATIC. BED IN LOWEST POSITION AND CALL LIGHT IN REACH.
--- NOTE | 2022-09-01 04:04 | NUR ---
SHIFT SUMMARY; NO ACUTE CHANGES OVERNIGHT. THE PT IS AXO X4 AND A 1 ASSIST TO THE BSC. THE PT HAS 3L NC ON WITH O2 SATS AT 98%, TITRATE DOWN TOLERATED. TELE IS IN PLACE, A-FIB IN THE 90'S. THE PT DENIES ANY PAIN, SOB, CHEST PAIN/PRESSURE OR N/V. THE PT HAS BEEN RESTING FOR THE ENTIRETY OF THE NIGHT. CURRENTLY THE PT IS SLEEPING IN BED WITH THE BED IN THE LOWEST POSITION AND THE CALL LIGHT AT BEDSIDE.
--- NOTE | 2022-09-01 18:01 | NUR ---
SHIFT SUMMARY PT IS AXO 3. SHE HAD BEEN UP STANDBY TO THE BEDSIDE COMMODE TODAY AND WORKED WITH PT WELL. SHE HAS HAD NO CHEST PAIN AND TELE REMAINS IN 80'S TO 90'S AFIB. SHE HAS BEEN FULLY TITRATED OF O2 AND IT SATTING 94% ON ROOM AIR EVEN WHEN UP TO THE BATHROOM. HOPEFUL TO DISCHARGE ON SATURDAY TO SNF. BED IN LOWEST POSITION AND CALL LIGHT IN REACH.
--- NOTE | 2022-09-02 06:00 | NUR ---
PATIENT ALERT AND ORIENTED, ROOM AIR, AFIB CONTROLLED ON TELE, DENIZ POWERGLIDE, 2 RFA PIV'S, INDEPENDENT TO BATHROOM, PATIENT SLEPT WELL, NO EVENTS OVERNIGHT
--- NOTE | 2022-09-02 17:01 | NUR ---
SHIFT SUMMARY MS KLEIN AMBULATED INDEPENDENTLY WITH A WALKER IN THE HALLS TODAY. STEADY GAIT. C/O MILD ARTHRITIS PAIN TO LEFT LEG WHEN WALKING, BUT NOTHING THAT SHE WANTED MEDICATION FOR. NO EVENT CALLS FORM BAGGAGE INSPECTOR TODAY. BED LOW, CALL LIGHT IN REACH.
--- NOTE | 2022-09-03 06:11 | NUR ---
SUMMARY: PT A/OX4, CALLS APPROPRIATELY TO SPECIFY NEEDS AND IS INDEPENDENT IN ROOM W/FWW. SHE DENIED PAIN AND ALL OTHER COMPLAINTS. TELEMETRY INTACT: AFIB AT 80'S BPM. PG TO ZORA IS SL'D AND IV TO L.FA WAS DC'D D/T PAIN. NO ACUTE CHANGES, VSS/AFEBRILE. WCTM AND REPORT TO DAY RN.
[2022-09-03] MEDS ORDERED: METOPROLOL SUCC25 MG PO (13:14)
[2022-09-03] MEDS ORDERED: Acetaminophen325 M1 PO (13:15)
[2022-09-03] MEDS ORDERED: ASPI81CH PO (13:15)
--- NOTE | 2022-09-03 13:19 | NUR ---
PT ACCEPTED TO [facility], UPDATED PT, CARE MANAGEMENT TO ARRANGE TRANSPORTATION
--- NOTE | 2022-09-03 16:10 | NUR ---
PT DISCHARGED TO SNF, PT TAKEN OUT VIA WHEELCHAIR, REPORT CALLED TO NURSE BAIRD AT [facility]
== END 2022-09-03 15:54 | DRG 871 ==
LOC: ER 10:25 → PCU 13:13 → MEDS 08-31 16:12
PROVIDERS: Emergency Medicine; Family Medicine; Student in an Organized Health Care Education/Training Program; ADMIT Internal Medicine
PROC: 3E03329 Introduction of Other Anti-infective into Peripheral Vein, Percutaneous Approach (ICD-10-PCS; 2022-08-26)
PROC: 0T9B70Z Drainage of Bladder with Drainage Device, Via Natural or Artificial Opening (ICD-10-PCS; 2022-08-26)
PROC: 4A033R1 Measurement of Arterial Saturation, Peripheral, Percutaneous Approach (ICD-10-PCS; principal; 2022-08-29)
PROC: 5A09357 Assistance with Respiratory Ventilation, Less than 24 Consecutive Hours, Continuous Positive Airway Pressure (ICD-10-PCS; 2022-08-29)
DX: A41.9 Sepsis, unspecified organism (principal); G93.41 Metabolic encephalopathy; N39.0 Urinary tract infection, site not specified; E87.20 Acidosis, unspecified; F10.231 Alcohol dependence with withdrawal delirium; E87.0 Hyperosmolality and hypernatremia; N17.9 Acute kidney failure, unspecified; I24.8 Other forms of acute ischemic heart disease; M62.82 Rhabdomyolysis; R65.20 Severe sepsis without septic shock; Z51.5 Encounter for palliative care; I48.91 Unspecified atrial fibrillation; E87.6 Hypokalemia; D69.6 Thrombocytopenia, unspecified; M54.9 Dorsalgia, unspecified; G89.29 Other chronic pain; Z20.822 Contact with and (suspected) exposure to COVID-19; B96.89 Other specified bacterial agents as the cause of diseases classified elsewhere; Z91.040 Latex allergy status; Z88.0 Allergy status to penicillin; Z98.890 Other specified postprocedural states; Z79.899 Other long term (current) drug therapy; Z87.891 Personal history of nicotine dependence
CPT/HCPCS: 0241U; 36415; 36600; 70450; 71045; 80048; 80053; 80069; 81001; 82140; 82550; 82553; 82803; 82947; 83605; 83735; 84100; 84132; 84443; 84478; 84484; 85014; 85018; 85025; 85049; 85520; 85610; 85730; 87040; 87086; 93005; 93010; 93306; 94660; 94760; 94762; 96361-59; 96365-59; 96366-59; 96375; 96376-59; 97110; 97162; 97166; 97530; 97535; 99285-25; A9270; C1751; G0480; J1644; J1956; J2060; J3411; J3480; J7030; J7050; P9612

== ENCOUNTER 2024-07-09 20:36 | Emergency (ER) | payer OTHER ==
[~2024-07-09] VITALS: Ht 170.2 cm; Wt 81.7 kg
[~2024-07-09 20:36] MED LIST changes: +ASPI81CH PO; +Acetaminophen325 M1 PO; +BUSP5 PO; +METOPROLOL SUCC25 MG PO; +POTCHL20ER PO
[2024-07-09] MEDS ORDERED: Gabapentin 300 MG Cap PO ONE ×2 (21:15→21:35)
[2024-07-09] MEDS ORDERED: Acyclovir 200 MG Cap PO ONE (21:15)
[2024-07-09] MEDS ORDERED: Acyclovir 400 MG Tab PO ONE (21:35)
[2024-07-09] MEDS ORDERED: ACYC800 PO (21:51)
[2024-07-09] MEDS ORDERED: NYSTATIN-TRIAMC15 GM TOP (22:14)
[2024-07-09] MEDS ORDERED: GABA300 PO (22:14)
[2024-07-09 22:27] VITALS: BP 160/120
== END 2024-07-09 22:37 | disposition home or self-care (01) ==
LOC: ER 20:36
DX: B02.9 Zoster without complications (principal); I48.91 Unspecified atrial fibrillation; Z79.82 Long term (current) use of aspirin; Z79.899 Other long term (current) drug therapy; Z88.0 Allergy status to penicillin; Z91.040 Latex allergy status
CPT/HCPCS: 99283; A9270